=== PATIENT | male | born 1990 | race Two or more races ===

== ENCOUNTER 2020-01-23 10:03 | Emergency (ER) | payer SELFPAY ==
[~2020-01-23] VITALS: Ht 175.3 cm; Wt 98.4 kg
[2020-01-23 10:23] VITALS: BP 109/71
== END 2020-01-23 11:23 | disposition home or self-care (01) ==
LOC: ER 10:03
DX: S63.614A Unspecified sprain of right ring finger, initial encounter (principal); X58.XXXA Exposure to other specified factors, initial encounter; Y93.89 Activity, other specified; Y92.89 Other specified places as the place of occurrence of the external cause; Y99.8 Other external cause status